=== PATIENT | female | born 1970 | race Caucasian/White ===

== ENCOUNTER → 2016-09-15 | Outpatient (CLI) | payer BC ==
--- NOTE | 2016-09-15 10:08 | US ---
Right Breast Sonography Clinical History: 45-year-old female with a prior history of a left-sided breast cancer noted to have abnormal enhancement in the 3 o'clock position of the right breast near the implant on previous MR i maging in 06/09/2016, with subsequent follow-up sonography revealing an area of indeterminate localize d diminished echogenicity immediately adjacent to the implant, and a follow-up in three months was re commended to confirm stability of BI-RADS Category 3 findings. Technique: A high-resolution transducer was used to sonographically reevaluate the 3 o'clock positio n of the right breast, 1 cm from the nipple. Dr. Acosta also requests sonographic evaluation of th e 9 and 12 o'clock positions of the right breast. Color Doppler is used. Comparison Studies: Right breast sonography, dated 06/12/2016 and MR imaging of the breast dated 2015. Findings: There has been no interval change in the hypoechoic area adjacent to the implant in the 3 o 'clock position, 1 cm from the nipple. This currently measures 6 x 2 x 6 mm, and previously measured 6 x 2 x 5 mm. There is no intrinsic vascularity. In the right breast 12 o'clock position, 5 cm from t he nipple, there is a well-circumscribed oval-shaped hypoechoic nodule measuring 3 x 5 x 4 mm, with n o intrinsic vascularity, and in the 9 o'clock position, 6 cm from the nipple, there is a 2 x 4 x 5 mm oval-shaped hypoechoic nodule with no intrinsic vascularity. The areas were not evaluated on the cecilio or sonogram, however, given their small size and well-circumscribed margins, follow-up sonography in 6 months to assure stability is suggested. Impression: Probably-benign sonographic findings; however, because these areas do not represent simpl e cysts, a six-month sonographic reevaluation is recommended, unless otherwise clinically indicated.
== END ==
LOC: FIMAGING 09:09
PROVIDERS: ATTEND Internal Medicine Hematology & Oncology
DX: Z12.39 Encounter for other screening for malignant neoplasm of breast (principal); R92.2 Inconclusive mammogram; Z85.3 Personal history of malignant neoplasm of breast

== ENCOUNTER → 2017-02-23 | Outpatient (CLI) | payer BC | LOC: FIMAGING 11:20 | PROVIDERS: ATTEND Internal Medicine Hematology & Oncology | DX: Z12.39 Encounter for other screening for malignant neoplasm of breast (principal); R92.8 Other abnormal and inconclusive findings on diagnostic imaging of breast | CPT/HCPCS: G0202-52 ==

== ENCOUNTER → 2017-06-24 | Outpatient (CLI) | payer BC | LOC: BMCIMAGING 09:40 | PROVIDERS: ATTEND Podiatrist Foot & Ankle Surgery | DX: M79.671 Pain in right foot (principal); M19.071 Primary osteoarthritis, right ankle and foot; Z98.1 Arthrodesis status ==

== ENCOUNTER → 2018-02-11 | Outpatient (CLI) | payer BC | LOC: FIMAGING 14:23 | PROVIDERS: ATTEND Internal Medicine Hematology & Oncology | DX: N63.10 Unspecified lump in the right breast, unspecified quadrant (principal); Z85.3 Personal history of malignant neoplasm of breast; Z90.12 Acquired absence of left breast and nipple ==

== ENCOUNTER → 2018-04-14 | Outpatient (CLI) | payer BC | LOC: FIMAGING 12:10 | PROVIDERS: ATTEND Internal Medicine Hematology & Oncology | DX: R59.9 Enlarged lymph nodes, unspecified (principal); Z85.3 Personal history of malignant neoplasm of breast ==

== ENCOUNTER → 2018-04-19 | Outpatient (CLI) | payer BC ==
[~2018-04-19] MED LIST: LIDOCAINE 1% 300 MG/30 ML SDV ONE
== END ==
LOC: FIMAGING 08:15
PROVIDERS: ATTEND Internal Medicine Hematology & Oncology
PROC: 07BH3ZX Excision of Right Inguinal Lymphatic, Percutaneous Approach, Diagnostic (ICD-10-PCS; principal; 2018-04-19)
DX: R59.9 Enlarged lymph nodes, unspecified (principal); C50.412 Malignant neoplasm of upper-outer quadrant of left female breast